=== PATIENT | male | born 1955 | race Caucasian/White ===

== ENCOUNTER 2020-11-15 08:19 | Emergency (ER) | payer OTHER ==
[~2020-11-15] VITALS: Ht 190.5 cm; Wt 61.2 kg
[2020-11-15 08:28] VITALS: Ht 190.5 cm; Wt 61.2 kg
[2020-11-15 10:19] LABS: PLATELET COUNT 133 x10^3mcL (152-348)
[2020-11-15 10:39] LABS: CARBON DIOXIDE 28.5 mmol/L (21-32); CHLORIDE SERUM 92 mmol/L (98-107); GFR1 > 60 mL/min; GLUCOSE SERUM 101 mg/dL (74-106); POTASSIUM SERUM 3.2 mmol/L (3.5-5.1); SODIUM SERUM 132 mmol/L (136-145)
[2020-11-15 10:49] LABS: ALKALINE PHOSPHATASE 173 U/L (46-116); ALT/SGPT 119 U/L (16-63); AST/SGOT 208 U/L (15-37); BILIRUBIN TOTAL 2.1 mg/dL (0.20-1.00); TOTAL PROTEIN, SERUM 6.4 g/dL (6.4-8.2)
[2020-11-15 10:52] LABS: ALBUMIN 3.1 g/dL (3.4-5.0)
[2020-11-15 11:10] LABS: RED CELL DISTRIBUTION WIDTH 15.8 % (12.1-16.2)
[2020-11-15 14:48] VITALS: BP 115/64
[2020-11-15 15:40] LABS: MONOCYTE 14 % (0-7); SEGMENTED NEUTROPHILS 77 % (37-75); rbc morphology (normal/abnorm) NORMAL (NORMAL)
== END 2020-11-15 14:48 | disposition home or self-care (01) ==
LOC: ED 08:19
PROVIDERS: Student in an Organized Health Care Education/Training Program
DX: S22.32XA Fracture of one rib, left side, initial encounter for closed fracture (principal); S09.8XXA Other specified injuries of head, initial encounter; X58.XXXA Exposure to other specified factors, initial encounter; Y93.89 Activity, other specified; Y92.89 Other specified places as the place of occurrence of the external cause; Y99.8 Other external cause status
CPT/HCPCS: 94150; J1885